=== PATIENT | female | born 1985 | race African-American/Black ===

== ENCOUNTER 2020-04-08 23:38 | Emergency (ER) | payer OTHER ==
[2020-04-08 23:41] VITALS: BP 114/78; PULSE 89; TEMP 98.6; BMI 22.8
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
[2020-04-09] MEDS ORDERED: KETOROLAC TROMETHAMINE 30 MG/1 ML VIAL ONE (00:03)
[2020-04-09] MEDS ORDERED: KETOROLAC TROMETHAMINE 30 MG/1 ML VIAL IM ONE (00:03)
== END 2020-04-09 00:19 | disposition home or self-care (01) ==
LOC: JER 23:38
PROC: 3E0233Z Introduction of Anti-inflammatory into Muscle, Percutaneous Approach (ICD-10-PCS; principal; 2020-04-08)
DX: M54.5 Low back pain (principal); M79.601 Pain in right arm; M54.2 Cervicalgia
CPT/HCPCS: 99284-25

== ENCOUNTER 2024-01-15 20:41 | Emergency (ER) | payer BC, OTHER ==
[2024-01-15 20:50] VITALS: RESP 18; BMI 23.6
[2024-01-15] MEDS ORDERED: ALPRAZolam 0.25 MG TABLET ONE (22:00)
[2024-01-15 22:02] LABS: BASO % 0.5 % (0-2.0); HEMATOCRIT 36.6 % (32.4-45.2); HEMOGLOBIN 12.5 GM/dL (10.7-15.3); LYMPH % 48.6 % (8-40); MCH 31.9 pg (25.7-33.7); MCHC 34.2 g/dl (32.0-36.0); MEAN CELL VOLUME 93.1 fl (80-96); MONO % 5.8 % (3.8-10.2); NEUT % 44.1 % (42.8-82.8); PLATELET COUNT 225 10^3/uL (134-434); RBC 3.93 M/mm3 (3.60-5.2); RDW 13.1 % (11.6-15.6)
[2024-01-15] MEDS: ALPRAZolam 1 MG TABLET PO ONE (22:03)
[2024-01-15 22:15] LABS: CALCIUM 9.1 mg/dL (8.5-10.1); POTASSIUM 3.7 mmol/L (3.5-5.1)
[2024-01-15 22:16] LABS: ALBUMIN 3.9 g/dl (3.4-5.0); BLOOD UREA NITROGEN 10.3 mg/dL (7-18); MAGNESIUM 1.8 mg/dL (1.8-2.4)
[2024-01-15 22:19] LABS: CREATININE 0.6 mg/dL (0.55-1.3)
[2024-01-15 22:21] LABS: BILIRUBIN,TOTAL 0.4 mg/dL (0.2-1); TOT PROT 7.3 g/dl (6.4-8.2)
[2024-01-15] MEDS ORDERED: morphine SULFATE 4 MG/ML VIAL ONE (22:44)
[2024-01-15 22:57] VITALS: BP 110/76; PULSE 72; TEMP 98.1
== END 2024-01-15 22:56 | disposition home or self-care (01) ==
LOC: JER 20:41
DX: R00.2 Palpitations (principal); R07.89 Other chest pain; R20.0 Anesthesia of skin; F41.9 Anxiety disorder, unspecified
CPT/HCPCS: 36415; 71045-TC-FY; 80053; 83735; 84439; 84443; 84484; 84703; 85025; 85379; 93005; 93010; 99285-25